=== PATIENT | female | born 1960 | race Caucasian/White ===

== ENCOUNTER → 2017-11-30 | Outpatient (CLI) | payer OTHER ==
[~2017-11-30] MED LIST: HYDROCHLOROTHIA25 M2 PO; LISINOPRIL10 MG PO; TRAMADOL 50 MG50 MG PO; ZYRTEC10 M5 PO
== END ==
LOC: M.RAD 10:39
DX: Z12.31 Encounter for screening mammogram for malignant neoplasm of breast (principal)

== ENCOUNTER → 2017-12-02 | Outpatient (CLI) | payer OTHER | LOC: M.RAD 10:36 | DX: R92.1 Mammographic calcification found on diagnostic imaging of breast (principal) ==

== ENCOUNTER → 2017-12-14 | Outpatient (CLI) | payer OTHER ==
--- NOTE | 2017-12-23 15:30 | S ---
[place] [address] SURGICAL PATH RPT PROCEDURE Name: LUCITA KAMARA [id number] Admission: 12/14/17 Date of : 64 Discharge: Report #: [id number] Path Case #: [id number] PATHOLOGY REPORT COLLECTION DATE: 12/14/2017 RECEIVED DATE: 12/14/2017 SUBMITTING PHYS: Dr. Petr Martin OTHER PHYS: MARIAA Felton SPECIMEN(S) RECEIVED: A.R breast * * * * * * * * * * * * FINAL DIAGNOSIS: Breast "breast biopsy": - DUCTAL CARCINOMA IN SITU INTERMEDIATE GRADE MEASURING 0.3 CM IN GREATEST DIMENSION WITH MICROCALCIFICATION. COMMENT: This case is also reviewed by Dr. Yoselin Rubio. Dr. Petr Martin nurse Adelia was notified on 12/15/2017. Predictive breast markers, ER and [place], will be ordered and an additional report will follow. (SHA:pit; 12/15/2017) PATHOLOGIST: Vishnu Townsend M.D. REPORT ELECTRONICALLY SIGNED BY: Vishnu Townsend M.D. DATE/TIME: 12/16/2017 09:29 * * * * * * * * * * * * GROSS PATHOLOGY: Received in formalin labeled "Lucita Kamara, right breast tissue," are multiple needle cores of yellow-akins fibrofatty tissue measuring 3.1 x 5.2 x 0.5 cm in aggregate dimensions. Also received is a plastic cassette containing multiple cores of yellow-akins fibrofatty tissue measuring 2.3 x 1.5 x 0.5 cm in aggregate dimensions. The tissue in the cassette is transferred to cassette A3, and the remaining tissue is submitted in its entirety in cassette A1 and A2. The cold ischemic time is 18 minutes. The total formalin fixation time is 12 hours and 18 minutes. (TSD; 12/14/2017) CLINICAL HISTORY: Right stereotactic breast biopsy for right breast calcifications INITIAL CPT CODE(S): [place] [address] SURGICAL PATH RPT PROCEDURE Name: LUCITA KAMARA Room: [facility]#: [id number] Admission: 12/14/17 Date of : 64 Discharge: Report #: [id number] Path Case #: [id number] A; [id number], 60155(2) Professional services performed [place] [address] Technical services performed by [facility] at [address] [place] [address], [address] [address]. PROCEDURE REPORT (Order Date: 12/21/2017 00:00) COMMENT: Quantitative image analysis was performed on block A2. Please see next page for scanned image of results. (AMJ 12/22/2017) PATHOLOGIST: Vishnu Townsend M.D. REPORT ELECTRONICALLY SIGNED BY: Vishnu Townsend M.D. DATE/TIME: 12/23/2017 15:29 [facility] [address] [address] PHONE: [phone] DIRECTOR: Wayne Lewis M.D. * * * END OF REPORT * * *
== END ==
LOC: M.ULTRA 10:17 → M.RAD 11:00
DX: N60.02 Solitary cyst of left breast (principal); N60.01 Solitary cyst of right breast; R92.0 Mammographic microcalcification found on diagnostic imaging of breast

== ENCOUNTER → 2017-12-29 | Outpatient (CLI) | payer OTHER ==
--- NOTE | 2018-01-09 21:55 | ONC ---
[place] [address] RADIATION ONCOLOGY NOTE Name: ASADONEIL A Room: [facility]#: [id number] Admission: 12/29/17 Attend Phys: Mack Wylie MD Discharge: Date of : 64 Report #: [id number] THIS REPORT FOR: //name// CC: Mack Phan MD DATE OF SERVICE: 12/29/2017 [facility] REFERRING PHYSICIANS: Santy Feliciano DO; Jennifer Zarate, nurse practitioner; car repairer apprentice is Dr. Issa and Jordan Phan MD. PRIMARY SITE AND HISTOPATHOLOGY: The patient has findings consistent with a stage 0 ([id number]) ductal carcinoma in situ of the right breast. It is intermediate grade. HISTORY OF PRESENT ILLNESS: The patient had a routine screening mammogram performed at [facility] on 11/30/2017 that revealed a new small cluster of indeterminate microcalcifications in the anterior right breast. She had a biopsy of that clustered microcalcifications and on 12/14/2017 that revealed ductal carcinoma in situ, intermediate grade and measured about 0.3 cm on the core biopsy. She denied having any nipple discharge. She denied having any palpable masses involving the right breast or the left breast. She saw her surgeon, Dr. Santy Feliciano, and her medical oncologist, Dr. hPan. At this point, she appears to be proceeding with breast conservation therapy. PAST MEDICAL HISTORY AND PAST SURGICAL HISTORY: She has hypertension. She had a section in 1990 at [facility]. She had a section in 1992 at the [facility] [place] and she also had a right ovarian removal in 2006 at [facility]. MEDICATIONS: Include hydrochlorothiazide, lisinopril, Zyrtec and then, she has supplements that she takes as well. ALLERGIES: TO SULFA, CODEINE, WHICH CAUSED HIVES AND RASH; BETADINE, WHICH CAUSES RASH AND LATEX MAKES HER SKIN VERY DRY. OBSTETRICS AND GYNECOLOGY: Menarche age 15, menopause around 06/2016. She is 2, para 2, SAB 0. FAMILY HISTORY: Maternal grandmother had a breast cancer around age 55[place] [address] RADIATION ONCOLOGY NOTE Name: ONEIL KAMARA Walter [id number] Admission: 12/29/17 Attend Phys: Mack Wylie MD Discharge: Date of : 64 Report #: [id number] . She has 2 daughters. Ethanol, she drinks an alcohol containing drink about 1 times a week. Cigarettes: she does not smoke. REVIEW OF SYSTEMS: GENERAL: She had some mild weight gain recently. SKIN: She denied having color changes except for a little bit of bruising where she had her biopsy on the right breast. LYMPH NODES: She denied having enlarged or painful glands in the neck. ENDOCRINE: She denied any hot or cold intolerance. HEMATOLOGY AND IMMUNOLOGY: She denied having any anemia or recent bleeding. MUSCULOSKELETAL: She denied having any arthritis or painful swollen joints. HEAD AND NECK: She denied having any headaches or migraines. RESPIRATORY: She denied having shortness of breath. CARDIOVASCULAR: She denied having palpitations. GASTROINTESTINAL: She denied having nausea. NEUROLOGIC: She denied having any focal weakness. PHYSICAL EXAMINATION: With my nurse, Skylar River present: VITAL SIGNS: Height 5 feet 2 inches, weight 165 pounds. Blood pressure 146/87, pulse 80, saturation 95% on room air, respirations 16. LYMPH NODES: She had no palpable cervical, supraclavicular or axillary lymphadenopathy. GENERAL AND PSYCHIATRIC: She was alert, oriented, and in no acute distress. EYES: Pupils were equal, round, reactive to light and accommodation. Extraocular movements were intact. HEAD: Mouth had no visible lesions. HEART: Had a regular rate and rhythm without murmur. LUNGS: were clear to auscultation. ABDOMEN: Not tender. Spleen was not palpable. Liver was at the costal margin. BREASTS: Right breast had a small palpable seroma in the area of the biopsy that measured about 1.5 cm x 1.5 cm at the 12 o'clock position. There were no suspicious palpable masses involving the right breast. There were no suspicious palpable masses involving the left breast. EXTREMITIES: Had no clubbing, cyanosis or edema. NEUROLOGIC: Cranial nerves II to XII were intact. Sensation was intact. She had 5/5 strength in her extremities. ASSESSMENT AND PLAN: The patient has findings consistent with an intermediate grade ductal carcinoma in situ. She was told that her treatment options include breast conservation therapy versus mastectomy. Radiation therapy can further reduce the chance of recurrent cancer in the breast when pursuing breast conservation therapy. The efficacy of radiation therapy can be found in the article entitled "Pathologic Findings From the National Surgical Adjuvant Breast Project eight-year update of protocol B-17." That was published in [place] [address] RADIATION ONCOLOGY NOTE Name: ONEIL KAMARA Room: [facility]#: [id number] Admission: 12/29/17 Attend Phys: Mack Wylie MD Discharge: Date of : 64 Report #: [id number] In that study, patients with ductal carcinoma in situ were randomized between lumpectomy alone versus lumpectomy and radiation therapy. At 8 years, the frequency of ipsilateral breast tumor recurrence was reduced from 31% to 13% with radiation therapy. So the risks, benefits and logistics of radiation therapy explained to the patient in detail and she wanted to go ahead and proceed with radiation therapy to the right breast as part of breast conservation therapy. She gave her witnessed, informed consent to proceed with radiation therapy. Thank you very much for this consult. <ELECTRONICALLY SIGNED> By: Mack Wylie MD 01/09/18 2155 1210 [id number] Wylie MD /nt
== END | disposition home or self-care (01) ==
LOC: M.RTH 09:00
DX: D05.11 Intraductal carcinoma in situ of right breast (principal); I10 Essential (primary) hypertension; Z98.890 Other specified postprocedural states; Z79.899 Other long term (current) drug therapy; Z88.2 Allergy status to sulfonamides; Z91.040 Latex allergy status

== ENCOUNTER → 2018-01-19 | Day surgery (SDC) | payer OTHER ==
[2018-01-19 08:02] LABS: CALCIUM 9.3 mg/dL (8.5-10.1); CREATININE 0.8 mg/dL (0.6-1.3); POTASSIUM 3.5 mmol/L (3.5-5.1)
--- NOTE | 2018-01-21 16:21 | S ---
[address] [address] SURGICAL PATH RPT PROCEDURE Name: ASADLUCITA Walter Room: [facility]#: [id number] Admission: 01/19/18 Date of : 64 Discharge: Report #: [id number] Path Case #: [id number] PATHOLOGY REPORT COLLECTION DATE: 01/19/2018 RECEIVED DATE: 01/19/2018 SUBMITTING PHYS: Dr. Santy Feliciano OTHER PHYS: MARIAA Felton SPECIMEN(S) RECEIVED: A.Right breast mass * * * * * * * * * * * * FINAL DIAGNOSIS: Right breast mass, needle localizational lumpectomy: - Benign breast tissue with fibrocystic changes and prior biopsy site including metallic clip, with no residual ductal carcinoma in situ/atypia. CLINICAL Clinical History: Prior history of breast cancer Specify Site, Diagnosis, and Prior Treatment: see comment Radiologic Finding: Calcifications SPECIMEN Procedure: Excision with wire-guided localization Lymph Node Sampling: No lymph nodes present Specimen Laterality: Right Tumor Site: Not specified TUMOR Size (Extent) of DCIS Estimated Size (extent) of DCIS (greatest dimension using gross and microscopic evaluation) is at Least (mm): 3 Histologic Type: Ductal carcinoma in situ. Classified as Tis (DCIS) or Tis (Paget) Architectural Patterns: Solid Nuclear Grade: Grade II (intermediate) Necrosis: Present, central (expansive "comedo" necrosis) MARGINS Margins uninvolved by DCIS Distance of DCIS from Closest Margin (mm): Cannot be assessed: no residual DCIS in specimen ACCESSORY FINDINGS Treatment Effect: Response to Presurgical (Neoadjuvant) Therapy: No known presurgical therapy Microcalcifications: Present in DCIS [address] [place] [place] [address] SURGICAL PATH RPT PROCEDURE Name: LUCITA KAMARA Room: [facility]#: [id number] Admission: 01/19/18 Date of : 64 Discharge: Report #: [id number] Path Case #: [id number] Present in nonneoplastic tissue STAGE (PTNM) Primary Tumor (pT): pTis (DCIS): Ductal carcinoma in situ Category (pN): pNX: Regional lymph nodes cannot be assessed (e.g., previously removed, or not removed for patholog COMMENT: There is no residual DCIS in the specimen and the synoptic data is updated to include the information from the prior right breast biopsy ([id number]) which showed DCIS, intermediate grade spanning 0.3 cm in association with microcalcifications. Breast tumor prolife studies performed on A2 of that specimen showed the following: ER 93.5% RI 11.1% (THAIS:miller; 01/21/2018) PATHOLOGIST: Edmund Pabon M.D. REPORT ELECTRONICALLY SIGNED BY: Edmund Pabon M.D. DATE/TIME: 01/21/2018 16:20 * * * * * * * * * * * * GROSS PATHOLOGY: The specimen is received in formalin labeled "Lucita Kamara, right breast mass". Received is a 16 g lumpectomy specimen which is received inked as follows: Superior-red, inferior-blue, lateral-orange, medial-yellow, anterior-green, posterior-black. The specimen measures 4.3 cm from anterior to posterior, 3.3 cm from superior to inferior, and 3.1 cm from medial to lateral. There is a localization wire present which enters through the superior margin and exits through the inferior margin. Sectioning reveals a previous biopsy site, with a metallic clip present, measuring 0.9 x 0.8 x 0.5 cm. This site is 0.1 cm from the lateral margin, 0.7 cm from the medial margin, 1.3 cm from the inferior margin, 1.1 cm from the superior margin, 1.5 cm from the posterior margin, and 2.0 cm from the anterior margin. The remainder of the specimen displays yellow-yanez, lobulated to white-yanez, fibrous cut surfaces, with the fibrous tissue encompassing approximately 50% of the specimen. The specimen is submitted entirely from anterior to posterior aspects as follows: A1 most anterior margin, serially sectioned A2-A20 entire mid-portion of the specimen, with sections in cassettes A3 through A18 additionally bisected into superior and inferior aspects A21 most posterior margin, [place] [address] SURGICAL PATH RPT PROCEDURE Name: LUCITA KAMARA [id number] Admission: 01/19/18 Date of : 64 Discharge: Report #: [id number] Path Case #: [id number] The previous biopsy site is submitted in cassettes A11 through A16. The cold ischemic time and time in formalin are not provided. The time out of formalin is 9:50 PM on 01/20/2018. (CAA; 01/20/2018) CLINICAL HISTORY: Right breast DCIS INITIAL CPT CODE(S): A; 76831 Professional services [place] [address] Technical services performed by [facility] at [address] [place] [address], [facility] [address] [address]. [facility] [address] [place] [address] PHONE: [phone] DIRECTOR: Wayne Lewis M.D. * * * END OF REPORT * * *
--- NOTE | 2018-02-09 09:48 | OP ---
[address] [address] OPERATIVE REPORT Name: ASADONEIL Watson Room: [facility]#: [id number] Admission: 01/19/18 Attend Phys: Santy Feliciano DO Discharge: Date of : 64 Report #: [id number] THIS REPORT FOR: //name// CC: Santy Zarate RNC JORDAN CONNER Patient's Chart DATE OF SERVICE: 01/19/2018 REFERRING PHYSICIANS: 1. DAREN Felton 2. Jordan Conner MD 3. Mack Wylie MD PREOPERATIVE DIAGNOSIS: Ductal carcinoma in situ of the right breast. POSTOPERATIVE DIAGNOSIS: Ductal carcinoma in situ of the right breast pending final pathology. PROCEDURE: Right breast lumpectomy after wire localization. SURGEON: Santy Feliciano DO NEW CAR INSPECTOR: Carroll Stone DO SECOND REFRIGERATION PLANT OPERATOR: Student, Dr. Viraj Estes, MS3. ANESTHESIA: General with an LMA. ESTIMATED BLOOD LOSS: 20 mL. COMPLICATIONS: None. SPECIMEN REMOVED: Right breast lump. DESCRIPTION OF PROCEDURE: After obtaining proper consents and discussing risks and complications with the patient, she was taken to the Radiology Department where she underwent wire localization of a previously placed clip from a previous biopsy that revealed ductal carcinoma in situ. After that, she was taken back to the preoperative holding area. Films were reviewed and her right breast was marked. She was then taken to the operating room, laid on the supine position, administered general anesthesia. She was prepped and draped in the usual fashion. Timeout was performed. We [place] [address] OPERATIVE REPORT Name: ONEIL KAMARA Room: [facility].#: [id number] Admission: 01/19/18 Attend Phys: Santy Feliciano DO Discharge: Date of : 64 Report #: [id number] procedure. Approximately a 3 cm long skin incision was then made around the guidewire. This was carried down through the skin into the subcutaneous tissue using electrocautery for hemostasis. Sharp dissection with Metzenbaum scissors was then used to remove an area of normal tissue around the wire. Once this was complete, the specimen was marked using the vector marking system. We then assured hemostasis within the wound using electrocautery. The wound was then closed using 2-0 Vicryl suture for the deeper subcutaneous and breast tissue. A 3-0 Vicryl suture was used to close the subcutaneous tissue and then 4-0 Monocryl was used to close the skin. The wound was injected with 0.5% Marcaine without epinephrine. Dermabond and a pressure dressing were placed. The patient tolerated the procedure well, was awakened in the operating room and transported to recovery room in stable condition. <ELECTRONICALLY SIGNED> By: Santy Feliciano DO 02/09/18 0948 1056 Sowmya Feliciano DO /rustam
== END | disposition home or self-care (01) ==
LOC: M.SUR 02:22
PROVIDERS: Surgery
DX: N60.11 Diffuse cystic mastopathy of right breast (principal); D24.1 Benign neoplasm of right breast; Z88.2 Allergy status to sulfonamides; Z91.040 Latex allergy status; Z91.041 Radiographic dye allergy status; Z88.8 Allergy status to other drugs, medicaments and biological substances

== ENCOUNTER → 2018-05-20 | Outpatient (CLI) | payer OTHER ==
--- NOTE | 2018-06-04 00:13 | ONC ---
[place] [address] RADIATION ONCOLOGY NOTE Name: ONEIL KAMARA Room: [facility]#: [id number] Admission: 05/20/18 Attend Phys: Mack Wylie MD Discharge: Date of : 64 Report #: [id number] THIS REPORT FOR: //name// CC: Mack Phan MD DATE OF SERVICE: 05/20/2018 Radiation Oncology Followup Note REFERRING PHYSICIANS: Erica Jung MD; Santy Feliciano DO; Jordan Phan MD PRIMARY SITE AND HISTOPATHOLOGY: The patient underwent radiation therapy as part of breast conservation therapy for a ductal carcinoma in situ of the right breast. The radiation therapy was completed on 03/22/2018. [facility] phone number is [phone]. INTERVAL NOTE: The patient felt like she has recuperated from her radiation therapy. She denied having any nipple discharge from the right breast. She denied having any nipple discharge from the left breast. She denied having any suspicious palpable masses involving the right breast. She denied having any suspicious palpable masses involving the left breast. SOCIAL HISTORY: Cigarettes: The patient does not smoke cigarettes. MEDICATIONS: Include hydrochlorothiazide, lisinopril, Zyrtec. REVIEW OF SYSTEMS: RESPIRATORY: Breathing was stable. She was not short of breath. MUSCULOSKELETAL: She had good range of motion of her upper extremities. PHYSICAL EXAMINATION: With my nurse, Skylar River, present. VITAL SIGNS: the patient's weight was 164.6 pounds on 05/20/2018 and she was 169 pounds on 03/22/2018. She was also 166 pounds and 9.6 ounces on 03/15/2018 and on 05/20/2018, blood pressure was 139/94, pulse 86, oxygen saturation 96%. LYMPH NODES: She had no palpable cervical, supraclavicular or axillary lymphadenopathy. HEART: Had a regular rate and rhythm without murmur. LUNGS: were clear to auscultation. BREASTS: Right breast had no suspicious palpable masses. Left breast had no suspicious palpable masses. ABDOMEN: Not tender. Spleen was not palpable. Liver was at the costal margin. EXTREMITIES: Had no clubbing, cyanosis or edema. NEUROLOGIC: Cranial nerves II to XII were intact. Sensation was intact. She had 5/5 [place] [address] RADIATION ONCOLOGY NOTE Name: ONEIL KAMARA Room: [facility]#: [id number] Admission: 05/20/18 Attend Phys: Mack Wylie MD Discharge: Date of : 64 Report #: [id number] ASSESSMENT AND PLAN: 1. History of ductal carcinoma in situ of the right breast- She has no evidence of breast cancer at this time. She was given a requisition to have a right mammogram at this time. She has an appointment with her medical oncologist, Dr. Phan, on 08/30/2018. She was given a requisition for a bilateral mammogram in 11/2018. She was asked to schedule a followup appointment to see me afterwards. 2. Hypertension- The patient takes hydrochlorothiazide and lisinopril that is managed by her referring physicians. 3. Environmental allergies- the patient takes Zyrtec and that is managed by her referring physicians. Thank you for allowing me to participate in the care of this patient. <ELECTRONICALLY SIGNED> By: Mack Wylie MD 06/04/18 0013 [id number] [id number] Wylie MD /nt
== END ==
LOC: M.RTH 04-27 10:00
DX: I10 Essential (primary) hypertension (principal); Z85.3 Personal history of malignant neoplasm of breast; Z88.8 Allergy status to other drugs, medicaments and biological substances

== ENCOUNTER → 2018-05-25 | Outpatient (CLI) | payer OTHER | LOC: M.RAD 09:56 | DX: R92.8 Other abnormal and inconclusive findings on diagnostic imaging of breast (principal) ==

== ENCOUNTER → 2018-12-15 | Outpatient (CLI) | payer OTHER | LOC: M.RAD 10:05 | DX: D05.11 Intraductal carcinoma in situ of right breast (principal) ==

== ENCOUNTER → 2018-12-23 | Outpatient (CLI) | payer OTHER ==
--- NOTE | ~2018-12-23 | ONC ---
[address] [address] RADIATION ONCOLOGY NOTE Name: ONEIL KAMARA Room: [facility]#: [id number] Admission: 12/23/18 Attend Phys: Mack Wylie MD Discharge: Date of : 64 Report #: [id number] THIS REPORT FOR: //name// CC: Mack Zarate DATE OF SERVICE: 12/23/2018 TYPE OF REPORT: Radiation oncology followup note. REFERRING PHYSICIANS: Include Jordan Phan MD; Santy Feliciano D.O., Erica Jung M.D. and Dr. Jennifer Zarate, RNC. [facility] phone is [phone]. 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 The radiation therapy was completed on 03/22/2018. INTERVAL NOTE: The patient denied having any nipple discharge from the right breast. She denied having any nipple discharge from the left wrist. She denied having any suspicious palpable masses involving the right breast. She denied having any suspicious palpable masses involving the left breast. SOCIAL HISTORY: Cigarettes: The patient does not smoke cigarettes. MEDICATIONS: Include hydrochlorothiazide, lisinopril and Zyrtec. REVIEW OF SYSTEMS: RESPIRATORY: Breathing was stable. She was not short of breath. MUSCULOSKELETAL: She had good range of motion of her upper extremities. PHYSICAL EXAMINATION: With my nurse, Skylar River, present: VITAL SIGNS: The patient weighed 164.2 pounds on 12/23/2018. She was 164.6 pounds on 05/20/2018 and on 12/23/2018, blood pressure is 125/77, pulse 84, respirations 20 and oxygen saturation was 98%. LYMPH NODES: The patient had no palpable cervical, supraclavicular or axillary lymphadenopathy. HEART: Had a regular rate and rhythm without murmur. LUNGS: Clear to auscultation. BREASTS: Right breast had no suspicious palpable masses. Left breast had no suspicious palpable masses. ABDOMEN: Nontender. Spleen is not palpable. Liver was at the costal margin. EXTREMITIES: Had no clubbing, cyanosis or edema. NEUROLOGICAL: The patient had 5/5 [place] [address] RADIATION ONCOLOGY NOTE Name: ASADONEILWalter HERNANDEZA Room: [facility]#: [id number] Admission: 12/23/18 Attend Phys: Mack Wylie MD Discharge: Date of : 64 Report #: [id number] RADIOLOGIC DATA: The patient had a bilateral mammogram at [facility] on 12/15/2018, which revealed a stable mammogram with nothing to suggest malignancy in either breast. ASSESSMENT: 1. History of ductal carcinoma in situ of the right breast. She has no evidence of breast cancer at this time. A requisition was written for a bilateral mammogram in December 2019 and the patient was asked to schedule a followup appointment to see me afterwards. 2. Hypertension. The patient takes hydrochlorothiazide and lisinopril and that is managed by referring physicians. 3. Environmental allergies, the patient takes Zyrtec and that is managed by her referring physicians. Thank you for allowing me to participate in the care of this patient. By: [id number] Wylie MD /nt
== END ==
LOC: M.RTH 12-21 10:15
DX: Z08 Encounter for follow-up examination after completed treatment for malignant neoplasm (principal); I10 Essential (primary) hypertension; Z86.000 Personal history of in-situ neoplasm of breast; Z91.09 Other allergy status, other than to drugs and biological substances

== ENCOUNTER → 2019-12-14 | Outpatient (CLI) | payer OTHER | LOC: M.RAD 10:00 | DX: D05.11 Intraductal carcinoma in situ of right breast (principal) ==

== ENCOUNTER → 2020-03-01 | Outpatient (CLI) | payer OTHER ==
--- NOTE | ~2020-03-01 | ONC ---
[address] [address] RADIATION ONCOLOGY NOTE Name: ONEIL KAMARA Room: [facility]#: [id number] Admission: 03/01/20 Attend Phys: Mack Wylie MD Discharge: Date of : 64 Report #: [id number] THIS REPORT FOR: //name// CC: Mack Jung DATE OF SERVICE: 03/01/2020 RADIATION ONCOLOGY FOLLOWUP NOTE REFERRING PHYSICIANS: Erica Jung MD; Santy Feliciano DO; Dr. Peoples from Cardiology; and Dr. Jordan Phan. [facility] phone is [phone]. 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 Radiation therapy was completed on 03/22/2019. INTERVAL NOTE: The patient denied having any nipple discharge from the right breast. The patient denied having any nipple discharge from the left breast. She denied having any suspicious palpable masses involving the right breast. She denied having any suspicious palpable masses involving the left breast. SOCIAL HISTORY: Cigarettes: The patient does not smoke cigarettes. MEDICATIONS: Include hydrochlorothiazide, lisinopril, and Zyrtec. REVIEW OF SYSTEMS: RESPIRATORY: Breathing was stable. She was not short of breath. MUSCULOSKELETAL: She had good range of motion of her upper extremities. PHYSICAL EXAMINATION: With my nurse, Skylar Perico, present: VITAL SIGNS: The patient weighed 158.8 pounds on 03/01/2020 and 164.2 pounds on 12/24/2019. On 03/01/2020, blood pressure is 124/90, pulse 89, oxygen saturation 97%, temperature 97.6 degrees Fahrenheit, and respirations 18. LYMPH NODES: The patient had no palpable cervical or supraclavicular or axillary lymphadenopathy. HEART: Regular rate and rhythm without murmur. LUNGS: Clear to auscultation. BREASTS: Right breast had no suspicious palpable masses. Left breast had no suspicious palpable masses. ABDOMEN: Nontender. Spleen is not palpable. Liver was at the costal margin. EXTREMITIES: No clubbing, cyanosis or edema. NEUROLOGIC: The patient had 5/5 strength [place] [id number] RADIATION ONCOLOGY NOTE Name: ONEIL KAMARA Room: [facility]#: [id number] Admission: 03/01/20 Attend Phys: Mack Wylie MD Discharge: Date of : 64 Report #: [id number] LABORATORY DATA: From 01/15/2020, BUN 22, creatinine 0.7, sodium 142, potassium 3.7, AST 21, and ALT 23. RADIOLOGIC DATA: From 12/14/2019, showed a stable mammogram with nothing to suggest malignancy and a followup screening mammogram was recommended in 12 months. ASSESSMENT AND PLAN: 1. History of ductal carcinoma of the right breast. There is no evidence of breast cancer at this time. A requisition was written for bilateral mammogram in 12/2020 and the patient was asked to schedule a followup appointment to see me afterwards. 2. Hypertension. The patient takes hydrochlorothiazide and lisinopril and that is managed by her referring physicians. 3. Environmental allergies. The patient takes Zyrtec and that is managed by her referring physicians. Thank you for allowing me to participate in the care of this patient. By: [id number] [id number] Wylie MD /rustam
== END ==
LOC: M.RTH 12-29 11:15
DX: C50.911 Malignant neoplasm of unspecified site of right female breast (principal); I10 Essential (primary) hypertension

== ENCOUNTER → 2021-01-08 | Outpatient (CLI) | payer OTHER | LOC: M.RAD 10:05 | PROVIDERS: ATTEND Radiology Radiation Oncology | DX: R92.2 Inconclusive mammogram (principal); N63.20 Unspecified lump in the left breast, unspecified quadrant; N63.10 Unspecified lump in the right breast, unspecified quadrant; Z85.3 Personal history of malignant neoplasm of breast ==

== ENCOUNTER → 2021-01-24 | Outpatient (CLI) | payer OTHER ==
--- NOTE | ~2021-01-24 | ONC ---
[place] [address] RADIATION ONCOLOGY NOTE Name: ONEIL KAMARA Room: [facility]#: [id number] Admission: 01/24/21 Attend Phys: Mack Wylie MD Discharge: Date of : 64 Report #: [id number] THIS REPORT FOR: cc: Erica Jung MD, Marjon MD Keleti, Daniel MD ~ DOC #: [id number] Mack Wylie MD DATE OF SERVICE: 01/24/2021 RADIOLOGY/ONCOLOGY FOLLOWUP NOTE REFERRING PHYSICIANS: Include Erica Jung MD, Santy Feliciano DO, Dr. Bessing, and Jordan Phan MD [facility] phone is [phone]. 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 Radiation therapy was completed on 03/22/2019. INTERVAL NOTE: The patient denied having any nipple discharge from the right breast. The patient denied having any nipple discharge from the left breast. She denied having any suspicious palpable masses involving the right breast. She denied having any suspicious palpable masses involving the left breast. SOCIAL HISTORY: Cigarettes: The patient does not smoke cigarettes. MEDICATIONS: The patient takes hydrochlorothiazide, lisinopril, Zyrtec as needed, and vitamin D3. REVIEW OF SYSTEMS: RESPIRATORY: Breathing was stable. She was not short of breath. MUSCULOSKELETAL: She had good range of motion of her upper extremities. PHYSICAL EXAMINATION: Physical examination with my nurse, Skylar River, present; VITAL SIGNS: The patient weighed 167.4 pounds on 01/24/2021. She was 158.8 pounds on 02/25/2020 and on 01/24/2021 blood pressure was 127/87, pulse 94, temperature 98.2 degrees Fahrenheit, respirations 18, oxygen saturation 97% on room air. LYMPH NODES: The patient had no palpable cervical, supraclavicular, or axillary lymphadenopathy. HEART: Had a regular rate and rhythm without murmur. LUNGS: Clear to auscultation. BREASTS: Right breast had no suspicious palpable masses. Left breast had no suspicious palpable masses. ABDOMEN: Not tender. Spleen was not palpable. Liver [place] [address] RADIATION ONCOLOGY NOTE Name: ONEIL KAMARA Room: [facility]#: [id number] Admission: 01/24/21 Attend Phys: Mack Wylie MD Discharge: Date of : 64 Report #: [id number] EXTREMITIES: No clubbing, cyanosis, or edema. NEUROLOGIC: The patient had 5/5 strength in her extremities. RADIOLOGIC DATA: The patient had a bilateral diagnostic mammogram at [facility] on 01/08/2021 and that revealed benign findings and annual screening mammograms were recommended. ASSESSMENT AND PLAN: 1. History of ductal carcinoma in situ of the right breast ? there is no evidence of breast cancer at this time. A requisition was written for bilateral mammogram in about one year and the patient was asked to schedule a followup appointment to see me afterwards. 2. Breast cosmesis. The patient was wondering about a plastic surgery referral to see if she can improve the symmetry between the treated breast and the untreated breast, so she was referred to the plastic surgeon, Dr. Gonsalez. 3. Hypertension. The patient takes hydrochlorothiazide and lisinopril and that is managed by referring physicians. 4. Environmental allergies. The patient takes Zyrtec and that is managed by her referring physicians. The total time spent on this appointment was approximately 31 minutes. Thank you for allowing me to participate in the care of this patient. MD LIUDMILA Landers/BRENNON/ELMA By: [id number] Wylie MD /nt
== END ==
LOC: M.RTH 10:30
PROVIDERS: ATTEND Radiology Radiation Oncology
DX: I10 Essential (primary) hypertension (principal); T78.40XD Allergy, unspecified, subsequent encounter; X58.XXXD Exposure to other specified factors, subsequent encounter; Z85.3 Personal history of malignant neoplasm of breast; Z98.82 Breast implant status